=== PATIENT | female | born 1950 | race Caucasian/White ===

== ENCOUNTER 2025-04-03 15:17 | Outpatient (CLI) | payer MEDICARE, OTHER | END 2025-04-03 15:18 | disposition home or self-care (01) | LOC: SCSRAD 15:17 | PROVIDERS: ATTEND Orthopaedic Surgery | DX: M46.1 Sacroiliitis, not elsewhere classified (principal); M25.551 Pain in right hip; M25.552 Pain in left hip; M16.0 Bilateral primary osteoarthritis of hip; M76.892 Other specified enthesopathies of left lower limb, excluding foot; M76.891 Other specified enthesopathies of right lower limb, excluding foot | CPT/HCPCS: 72190 ==